=== PATIENT | female | born 1955 | race African-American/Black ===

== ENCOUNTER → 2022-11-23 10:15 | Outpatient (BNVA) | payer OTHER, MEDICAID, SELFPAY | PROVIDERS: PCP Hospitalist; Visit Provider Nurse Practitioner Family | DX: G47.33 Obstructive sleep apnea (adult) (pediatric) (principal); I69.392 Facial weakness following cerebral infarction; G43.009 Migraine without aura, not intractable, without status migrainosus; R40.0 Somnolence | CPT/HCPCS: 99202 ==

== ENCOUNTER → 2022-12-27 19:30 | Outpatient (REF) | payer OTHER, SELFPAY | LOC: HO.SL 19:30 | PROVIDERS: Visit Provider Nurse Practitioner Family | DX: G47.33 Obstructive sleep apnea (adult) (pediatric) (principal); R40.0 Somnolence | CPT/HCPCS: 95810 ==

== ENCOUNTER → 2022-12-27 22:24 | Outpatient (BNV) | payer OTHER, SELFPAY | PROVIDERS: Visit Provider Psychiatry & Neurology Neurology | DX: R06.83 Snoring (principal) | CPT/HCPCS: 95810 ==

== ENCOUNTER 2023-02-09 11:15 | Outpatient (AMB) | payer OTHER, MEDICAID, SELFPAY ==
--- NOTE | 2023-02-09 11:23 | MHC.OFFVIS ---
Intake Vital Signs 02/09/23 11:24 Height 5 ft 3 in Weight 183 lb 8 oz BMI 32.5 BP 138/76 Blood Pressure Location Rt brachial Pulse 68 Pulse Source Pulse Oximeter Pulse Oximetry (%) 97 Oxygen Delivery Method Room Air Intake Visit Reasons: 2m f/u NABIL / L sided [id number] Intake Note: Pt presents today for NABIL Fup Allergies ibuprofen Allergy (Severe, Verified 02/09/23 11:30) rash penicillin V Allergy (Severe, Verified 02/09/23 11:30) rash valsartan Allergy (Severe, Verified 02/09/23 11:30) Rash aspirin Allergy (Verified 02/09/23 11:30) rash HPI HPI Comments History of Present Illness Details 67 y/o female patient with hx of TIA, HTN, HLD and NABIL on CPAP presents for follow up of sleep study. The PSG sleep study result was significant for loud snoring. There was no evidence of sleep apnea or sleep related movement disorders. She had hx of NABIL and using CPAP. Pt was diagnosed with NABIL about 15-18 years and has been using the old CPAP. She has received new supplies from [facility] recently. However, she does not use the CPAP regularly and the new supplies does not fit to the old CPAP. Pt reports that she had episodes of difficulty breathing and gasping at night for the last two days. Pt states that her nose blocked, but not congested, she could not use CPAP. She could not sleep and woke up with headache. Pt disagree with the sleep study result, and wants to refer for second opinion. PFS Surgical History H/O tooth extraction History of ankle surgery History of thyroid surgery History of tonsillectomy Hx of breast reduction, elective Family History Father Cancer Mother Cancer HTN (hypertension) Family/Other Cancer HTN (hypertension) Social History Alcohol intake: never Patient Tobacco Use Status: Never used Tobacco Review of Systems ENT Reports Normal hearing present Neuro Reports Normal hearing present Physical Exam Vital Signs: Last Vital Signs Pulse 68 02/09/23 11:24 BP 138/76 02/09/23 11:24 Pulse Ox 97 08/31/23 11:24 Oxygen Delivery Method Room Air 02/09/23 11:24 BMI result Body Mass Index 32.5 Const General: cooperative Nutritional Appearance: obese Orientation/consciousness: patient oriented x3 Neck Neck: Yes full ROM and Yes supple Resp Effort & Inspection: normal respiratory effort and able to speak in complete sentences Neuro Other: Left upper extremity and lower extremity strength 4/5. 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 General: patient oriented x3, gait normal and moves all extremities Cranial nerves: Yes Bilaterally intact EOM present, Yes Normal facial strength present, Yes Midline tongue present, Yes Symmetric palate elevation present, Yes Normal hearing present, Yes Ability to bilaterally rotate head present and Yes Ability to bilaterally elevate shoulders present Cognition (Neuro): normal cognition Gait exam (Neuro): Normal gait present Motor exam (neuro): Pronator motor function not present and no tremor noted Deep tendon reflexes (DTR's): Right brachioradialis reflex intensity grade: 2+, Left brachioradialis reflex intensity grade: 3+, Right patellar reflex intensity grade: 1+ and Left patellar reflex intensity grade: 4+ Psych Appearance: grossly normal Mental Status: mental status grossly normal Speech and movement: Normal speech and movement present Affect: normal affect Attitude: cooperative Assessment & Plan Assessment & Plan (1) Snoring: Code(s): R06.83 - Snoring (2) NABIL on CPAP: Code(s): G47.33 - Obstructive sleep apnea (adult) (pediatric) (3) Daytime sleepiness: Code(s): R40.0 - Somnolence Plan Discussed regarding sleep study result and referring to ENT for snoring evaluation. However, patient declined to refer to ENT. Pt wants to have repeat sleep study and the second opinion. Advised patient to sleep on her side to decrease snoring. Refer patient to [facility]. Orders: Referrals Sleep Medicine Referral G47.33 - Obstructive sleep apnea (adult) (pediatric), R06.83 - Snoring, R40.0 - Somnolence Coding Level of Care Code Est Pt Level 3 (81973) Diagnoses Snoring R06.83 NABIL on CPAP G47.33 Daytime sleepiness R40.0
[2023-02-09 11:24] VITALS: BP 138/76; PULSE 68; O2SAT 97; BMI 32.5
== END 2023-02-09 11:54 | disposition home or self-care (01) ==
PROVIDERS: PCP Hospitalist; Visit Provider Nurse Practitioner Family
DX: R06.83 Snoring (principal); G47.33 Obstructive sleep apnea (adult) (pediatric); R40.0 Somnolence
CPT/HCPCS: 99213

== ENCOUNTER → 2023-02-09 11:15 | Outpatient (BNVA) | payer OTHER, SELFPAY | PROVIDERS: PCP Hospitalist; Visit Provider Nurse Practitioner Family | DX: G47.33 Obstructive sleep apnea (adult) (pediatric) (principal); R06.83 Snoring; R40.0 Somnolence | CPT/HCPCS: 99212 ==

== ENCOUNTER 2024-11-07 14:46 | Outpatient (AMB) | payer MEDICARE, MEDICAID, SELFPAY ==
--- OUTSIDE RECORDS SUMMARY | 2024-11-07 14:50 | XMS_ITS | Patient Health Record ---
Author Organization [facility] Address [address] [place] [address] Care Team Providers Care Batch Heat Treat Operator Name Role Phone ARNOLD ESCUDERO Primary Care Provider Niall Mensah Unavailable [phone] Allergies Allergen (clinical drug ingredient) Drug/Non Drug Allergy documented on EMR Reaction Allergy Type Onset Date Status hydrochlorothiazide hydroCHLOROthiazide low patassium Drug Allergy Inactive valsartan Valsartan rash Drug Allergy Active aspirin Aspirin Unknown Drug Allergy Active gabapentin Gabapentin Bilateral arm and leg weakness Drug Allergy Active ibuprofen Ibuprofen Unknown Drug Allergy Active Penicillin Unknown Drug Allergy Active Results Component Value Reference Range Notes PLASMA RENIN ACTIVITY Reviewed date:07/29/2024 07:45:34 AM Interpretation: Performing Lab: Notes/Report: Test(s) 219783-Fsscr Activity, Plasma was developed and its performance characteristics determined by [facility]. It has not been cleared or approved by the Food and Drug Administration. Performed at: 01 - [address] [id number] Cotton Picker Operator: Iron Bedoya MD, Phone: [phone] RENIN ACTIVITY, PLASMA <0.167 0.167-5.3 80 ng/mL/hr ALDOSTERONE, DIRECT RENIN RA RAQUEL Reviewed date:07/27/2024 08:59:48 AM Interpretation: Performing Lab: Notes/Report: Aldosterone 3.5 REFERENCE RANGE: Upright <= 39.2 ng/dL Supine <= 23.2 ng/dL Direct Renin <2.1 3.1-57.1 pg/mL Aldosterone/Direct Renin Ratio 1.7 0.1-3.7 Test performed at [facility], [address] , [place] [address] Carole Rosenbaum MD, PhD - Living Skills Advisor MR BRAIN WO CONTRAST Reviewed date:07/24/2024 12:08:24 PM Interpretation: Performing Lab: Notes/Report: Note See Note [facility], a member of [employer] Patient Name: TOVA CAPONE Date of : 1955 Reason for Exam: Stroke, follow up Exam Date: 07/24/[id number] EST Report Status: Final Ordering Provider: NATHEN OWUSU PCP: ARNOLD ESCUDERO PROCEDURE: Brain MRI INDICATION: Stroke, left-sided weakness TECHNIQUE: Multiplan ar, multisequence MRI of the brain Without contrast. COMPARISON: Head CT and CTA 07/23/2024. Brain MRI 02/26/2023 FINDINGS: No acute infarct, ma ss effect, or intracranial hemorrhage. Right cerebellar developmental venous anomaly better visualized on comparison CTA. Brain parenchyma is otherwise normal in signal. No abnormal intracranial susceptibility artifact. Sella and foramen magnum are normal. Ventricles, sulci, a nd cisterns are normal in size and configuration. No hydrocephalus. Major intracranial arterial flow voids are normal. Intracranial arterial vasculature is better assessed on recent CTA. Small right mastoid effusion. Sinuses and left mastoid air cells are clear. Orbits and extracran ial soft tissues are normal. Calvarium is normal. IMPRESSION: Normal brain MRI without contrast. No acute infarct. -------- FINAL REPOR T -------- Dictated By: EUGENIA SONI Dictated Date: 07/24/2024 09:41 ET Assigned Physician: EUGENIA SONI Reviewed and Electronically Signed By: EUGENIA SONI Signed Date: 025 09:44 ET Workstation ID: [id number] Transcribed By: Self Edit Transcribed Date: 07/24/2024 09:41 ET CORTISOL Reviewed date:07/24/2024 12:08:27 PM Interpretation: Performing Lab: Notes/Report: CORTISOL REFERENCE RANGE 8 AM SPEC: 5.0-23.0 mcg/dL 4 PM SPEC: 3.0-16.0 mcg/dL 8 PM SPEC: <5.0 mcg/dL Cortisol 9.9 Basic Metabolic Panel (8)-[id number] Reviewed date:09/12/2024 08:52:31 AM Interpretation: Performing Lab:[facility], [address] [place] [address], Phone - [phone], [facility] Notes/Report: Glucose 122 70-99 mg/dL BUN 16 8-27 mg/dL Creatinine 0.84 0.57-1.00 mg/dL eGFR 75 >59 mL/min/1.73 BUN/Creatinine Ratio 19 12-28 Sodium 144 134-144 mmol/L Potassium 2.9 3.5-5.2 mmol/L Chloride 104 96-106 mmol/L Carbon Dioxide, Total 19 20-29 mmol/L Calcium 10.0 8.7-10.3 mg/dL Ferritin-[id number] Reviewed date:09/12/2024 08:52:42 AM Interpretation: Performing Lab:[facility], [address] [place] [address], Phone - [phone], Director - [facility] Notes/Report: Ferritin 39 15-150 ng/mL Magnesium-[id number] Reviewed date:09/12/2024 08:52:57 AM Interpretation: Performing Lab:[address], Phone - [phone], Director - [facility] Notes/Report: Magnesium 2.0 1.6-2.3 mg/dL Iron and TIBC-[id number] Reviewed date:09/12/2024 08:52:49 AM Interpretation: Performing Lab:[facility], [address] [place] [address], Phone - [phone], Director [facility] Notes/Report: Iron Bind.Cap.(TIBC) 337 250-450 ug/dL UIBC 271 118-369 ug/dL Iron 66 27-139 ug/dL Iron Saturation 20 15-55 % MAGNESIUM Reviewed date:07/24/2024 07:52:25 AM Interpretation: Performing Lab: Notes/Report: Magnesium 1.6 1.9-2.6 mg/dL POTASSIUM Reviewed date:07/24/2024 05:03:21 PM Interpretation: Performing Lab: Notes/Report: Potassium 4.5 3.5-5.5 mmol/L LIPID PANEL WITH REFLEX TO D IRECT LDL Reviewed date:07/24/2024 07:52:20 AM Interpretation: Performing Lab: Notes/Report: Cholesterol 194 0-200 mg/dL Triglycerides 125 0-150 mg/dL HDL 49 >=40 mg/dL LDL Calculated 120 0-100 mg/dL VLDL Cholesterol Yordan 25 Non HDL Chol. (LDL+VLDL) 145 <145 mg/dL Chol/HDL Ratio 4.0 0.0-4.4 BASIC METABOLIC PANEL Reviewed date:07/30/2024 11:07:18 AM Interpretation: Performing Lab: Notes/Report: Sodium 143 133-145 mmol/L Potassium 2.9 3.5-5.5 mmol/L Chloride 109 96-110 mmol/L CO2 29 21-32 mmol/L Anion Gap 5 3-11 Glucose 101 70-100 mg/dL BUN 10 5-25 mg/dL Creatinine 0.72 0.50-1.10 mg/dL eGFR 91 >=60 mL/min/1.73m2 Calculation based on the Chronic Kidney Disease Epidemiology Collaboration (CKD-EPI) equation refit without adjustment for race. BUN/Creatinine Ratio 13.9 Calcium 8.6 8.5-10.5 mg/dL XR CHEST 1 VIEW Reviewed date:07/24/2024 12:08:56 PM Interpretation: Performing Lab: Notes/Report: Note See Note [facility], a member of [employer] Patient Name: TOVA CAPONE Date of : 1955 Reason for Exam: Neuro deficit, acute, stroke suspected Exam Date: 07/23/2024 [id number] EST Report Status: Final Ordering Provider: DAVID DA SILVA PCP: ARNOLD ESCUDERO HISTORY: The patient is a 69-year-old female with altered mental status and neurologic deficit. FINDINGS: AP portabl e radiograph of the chest demonstrates normal appearance of the bony structures. The cardiac silhouette is borderline enlarged as also seen on the prior examination performed 01/20/2024. The aortic knob is calcified and the descending thoracic aorta is tortuous. Mild linear scarring is again seen laterally near the left lung base. There is a 7.8 mm diameter oval nodular density laterally near the right lung base of uncertain etiology. The lungs are otherwise clear. IMPRESSION: 1. There is a 7.8 mm diameter masslike density laterally near the right lung base. This may represent a pulmonary nodule and neoplasm cannot be excluded. Further evaluation with CT scan of the chest is recommended. 2. Linear scarring a t the left lung base is unchanged since 01/20/2024. 3. Borderline cardiomegaly, stable since the prior study. Code 68071 -------- FINAL REPOR T -------- Dictated By: Gene Diallo Dictated Date: 07/24/2024 10:03 ET Assigned Physician: Gene Diallo Reviewed and Electronically Signed By: Gene Diallo Signed Date: 025 10:08 ET Workstation ID: [id number] Transcribed By: Self Edit Transcribed Date: 07/24/2024 10:07 ET HEMOGLOBIN A1C Reviewed date:07/24/2024 05:03:30 PM Interpretation: Performing Lab: Notes/Report: Hemoglobin A1C 5.9 <6.5 % Mean Bld Glu Estim. 123 LIPID PANEL WITH REFLEX TO D IRECT LDL Reviewed date:07/24/2024 07:51:44 AM Interpretation: Performing Lab: Notes/Report: Cholesterol 206 0-200 mg/dL Triglycerides 215 0-150 mg/dL HDL 51 >=40 mg/dL LDL Calculated 112 0-100 mg/dL VLDL Cholesterol Yordan 43 Non HDL Chol. (LDL+VLDL) 155 <145 mg/dL Chol/HDL Ratio 4.0 0.0-4.4 Basic Metabolic Panel (7)-30 [id number] Reviewed date:08/02/2024 12:31:03 AM Interpretation: Performing Lab:[facility], [address] [facility], Phone - [phone], Director - [facility] Notes/Report: Glucose 125 70-99 mg/dL BUN 9 8-27 mg/dL Creatinine 0.77 0.57-1.00 mg/dL eGFR 83 >59 mL/min/1.73 BUN/Creatinine Ratio 12 12-28 Sodium 144 134-144 mmol/L Potassium 3.8 3.5-5.2 mmol/L Chloride 108 96-106 mmol/L Carbon Dioxide, Total 20 20-29 mmol/L CBC With Differential/Platel et-[id number] Reviewed date:09/12/2024 08:53:11 AM Interpretation: Performing Lab:[facility], [address] [facility], [place], Phone - [phone], Director - MDJodry Notes/Report: WBC 11.2 3.4-10.8 x10E3/uL RBC 4.66 3.77-5.28 x10E6/uL Hemoglobin 14.2 11.1-15.9 g/dL Hematocrit 41.3 34.0-46.6 % MCV 89 79-97 fL MCH 30.5 26.6-33.0 pg MCHC 34.4 31.5-35.7 g/dL RDW 15.4 11.7-15.4 % Platelets 346 150-450 x10E3/uL Neutrophils 57 Not Estab. % Lymphs 33 Not Estab. % Monocytes 9 Not Estab. % Eos 0 Not Estab. % Basos 0 Not Estab. % Neutrophils (Absolute) 6.4 1.4-7.0 x10E3/uL Lymphs (Absolute) 3.7 0.7-3.1 x10E3/uL Monocytes(Absolute) 1.0 0.1-0.9 x10E3/uL Eos (Absolute) 0.0 0.0-0.4 x10E3/uL Baso (Absolute) 0.0 0.0-0.2 x10E3/uL Immature Granulocytes 1 Not Estab. % Immature Grans (Abs) 0.1 0.0-0.1 x10E3/uL CBC WITH AUTO DIFF Reviewed date:01/20/2024 11:02:20 AM Interpretation: Performing Lab: Notes/Report: Original Ordering Provider: RIGOBERTO [facility], a member of [address] [address] Living Skills Advisor - Kerry Mccormick MD WBC 13.6 4.8-10.8 x10-3/uL RBC 5.0 3.8-4.8 x10-6/uL HEMOGLOBIN 14.3 11.5-16.0 g/dL HEMATOCRIT 44.3 35-47 % MCV 87.9 79-98 fL MCH 28.4 27-32 pg MCHC 32.3 32-37 g/dL RDW 14.3 11-15 % PLT COUNT 366 130-400 x10-3/uL MEAN PLATELET VOLUME 9.6 7-11 fL NRBC % AUTO 0.0 <1 % NEUT % 85.1 LYMPH % 9.4 MONO % 3.6 EOS % 0.7 BASO % 0.4 IMMATURE GRANULOCYTES % 0.8 NRBC # AUTO 0.00 <0.1 x10-3/uL ABSOLUTE NEUT 11.55 1.5-7.0 x10-3/uL LYMPH # 1.27 1-5.0 x10-3/uL MONO # 0.49 0.2-1.0 x10-3/uL EOS # 0.09 0-0.5 x10-3/uL BASO # 0.05 0-0.2 x10-3/uL IMMATURE GRANULOCYTES # 0.11 0-0.03 x10-3/uL PARTIAL THROMBOPLASTIN TIME Reviewed date:12/01/2023 11:26:42 AM Interpretation: Performing Lab: Notes/Report: Hingi, a member of [address] [address] Living Skills Advisor - Kerry Mccormick MD PARTIAL THROMBOPLASTIN TIME 38.1 24.1-39.3 sec PT/INR Reviewed date:12/01/2023 11:26:52 AM Interpretation: Performing Lab: Notes/Report: Original Ordering Provider: RIGOBERTO ER PROTHROMBIN TIME 13.4 10.6-13.9 SEC INR 1.07 CBC WITH AUTO DIFF Reviewed date:12/01/2023 11:27:02 AM Interpretation: Performing Lab: Notes/Report: Original Ordering Provider: RIGOBERTO CARTER Hingi, a member of [address] [address] Living Skills Advisor - Kerry Mccormick MD WBC 6.5 4.8-10.8 x10-3/uL RBC 4.6 3.8-4.8 x10-6/uL HEMOGLOBIN 13.6 11.5-16.0 g/dL HEMATOCRIT 40.4 35-47 % MCV 88.0 79-98 fL MCH 29.6 27-32 pg MCHC 33.7 32-37 g/dL RDW 13.2 11-15 % PLT COUNT 321 130-400 x10-3/uL MEAN PLATELET VOLUME 9.7 7-11 fL NRBC % AUTO 0.0 <1 % NEUT % 56.3 LYMPH % 29.4 MONO % 8.4 EOS % 4.6 BASO % 0.8 IMMATURE GRANULOCYTES % 0.5 NRBC # AUTO 0.00 <0.1 x10-3/uL ABSOLUTE NEUT 3.67 1.5-7.0 x10-3/uL LYMPH # 1.92 1-5.0 x10-3/uL MONO # 0.55 0.2-1.0 x10-3/uL EOS # 0.30 0-0.5 x10-3/uL BASO # 0.05 0-0.2 x10-3/uL IMMATURE GRANULOCYTES # 0.03 0-0.03 x10-3/uL Reason For Referral Reason Evaluation and manag ement Diagnosis 1 Unspecified sensorin eural hearing loss (H90.5) Referral Organization [facility] Referring Provider First Name Niall Referring Provider Last Name Rodrick Referred Provider Specialty Ear, nose an d throat surgeon General Notes Referral sent to [facility] - Office will call patient for scheduling.Ajay Latraya 02/28/2024 04:16:20 PM > Referral Priority Routine Reason Evaluation and manag ement - Migraine DE LEON and brain aneurysm Diagnosis 1 Migraine with aura, not intractable, without status migrainosus (G43.109) Referral Organization [facility] Referring Provider First Name Jennie Referring Provider Last Name Rodrick Referred Provider Specialty Neurology General Notes Referral sent to [facility] - Office will call patient for scheduling.Ajay Latraya 02/28/2024 04:17:16 PM > Referral Priority Routine Reason Evaluation and manag ement Diagnosis 1 Encounter for screen ing for malignant neoplasm of skin (Z12.83) Referral Organization [facility] Referring Provider First Name Jennie Referring Provider Last Name Rodrick Referred Provider Specialty Dermatology General Notes Referral sent to [facility] in [place]- Office will call patient for scheduling.Ajay Latraya 02/28/2024 04:18:43 PM > Referral Priority Routine Reason Please evaluate and treat call Ursula Capone Ph: HCP to schedule appt Diagnosis 1 Transient cerebral i schemic attack, unspecified (G45.9) Referral Organization [facility] Referring Provider First Name Jennie Referring Provider Last Name Rodrcik Referred Provider Specialty Neurology General Notes Referral faxed to [facility] Please call patient to schedule.Tarun Christy 08/02/2024 10:46:01 AM > Referral Priority Stat Reason Numbness involving t he left fifth digit of the foot please evaluate and treat Diagnosis 1 Paresthesia of skin (R20.2) Referral Organization [facility] Referring Provider First Name Jennie Referring Provider Last Name Rodrick Referred Provider Specialty Podiatry General Notes Referral was faxed t o [facility]. Please contact patient for scheduling., Tati Quinones 08/16/2024 05:00:50 PM > Referral Priority Routine Reason Evaluation and manag ement please evaluate and treat, r/o secondary causes of hypokalemia, previous Bloodwork showed low direct renin and low renin activity plasma. She does also have hx of HTNN Diagnosis 1 Hypokalemia (E87.6) Diagnosis 2 Essential (primary) hypertension (I10) Referral Organization [facility] Referring Provider First Name ARNOLD Referring Provider Last Name KENA Referring Provider Speciality Internal M edicine Referred Provider Specialty Nephrology General Notes Referral sent to [facility] ([facility], [address] [place] [address], ). Please let patient know. Thanks!, Emile Romero 10/24/2024 01:05:39 PM > Referral Priority Urgent Reason cyst on the left fernando calixto Dr. Please evaluate and treat Diagnosis 1 Epidermal cyst (L72. 0) Referral Organization [facility] Referring Provider First Name Niall Referring Provider Last Name Rodrick Referred Provider Specialty General Surg brianne General Notes Please call the vin ent to schedule the appointment, [facility]. Please contact them at [phone], Elisa Carballo 11/05/2024 04:37:08 PM > Referral Priority Routine Medications Medication SIG (Take, Route, Frequency, Duration) Notes Start Date End Date Status Ondansetron HCl 4 MG TAKE 1 TABLET BY MO UTH EVERY DAY for 30 Active Albuterol Sulfate HFA 108 (90 Base) MCG/ACT INHALE 1 PUFF INTO THE LUNGS as NEEDED FOR 90 DAYS for 25 days Active amLODIPine Besylate 10 MG 1 tablet Orall y Once a day for 90 days Active Pantoprazole Sodium 40 MG 1 tablet Orall y Once a day for 30 days Active Blood Pressure Kit - take blood pressure once a day for 365 days 02/15/2024 Active Topiramate 25 MG TAKE 1 TABLET BY ISHA TH AT BEDTIME FOR HEADACHE PREVENTION once a day for 90 days Active traZODone HCl 50 MG 1 tablet Orally Once at night for 90 days 02/28/2024 Active Estradiol 0.1 MG/24HR 1 patch to skin Transdermal Two times a Week Not-Taking Atorvastatin Calcium 80 MG TAKE 1 TABLET BY MOUTH EVERY DAY FOR 90 DAYS Orally Once a day for 90 days Active Vitamin C 500 MG as directed Orally Not-Taking Ubrelvy 50 MG 1 tablet as needed, may take second dose at least 2 hours after first dose up to 4 tablets per day as needed Orally Once a day for 30 days 08/08/2024 Active Meclizine HCl 12.5 MG 1 tablet as needed Orally every 8 hrs 03/01/2023 Not-Taking Wall Grab Bar - Grab shower bar for 90 days 04/10/2024 Active Losartan Potassium 50 MG TAKE 1 TABLET B Y MOUTH TWICE A DAY for 90 Not-Taking Losartan Potassium 100 MG 1 tablet Orall y Once a day for 90 days Active Klor-Con M20 20 MEQ TAKE 1 TABLET BY ISHA TH EVERY DAY WITH FOOD for 90 Active Coreg 3.125 MG 1 tablet with food Orally Twice a day for 30 days Active predniSONE 20 MG 3 tablets once a day for 5 days, 2 tablets once a day for 5 days, 1 tablet once a day for 5 days Orally for 15 days 09/05/2024 Not-Taking Azithromycin 250 MG as directed Orally 2 tablets on the first day, then 1 tablet daily for 5 days 09/05/2024 Not-Taking Blood Pressure Kit - as directed for 30 days 08/15 Active Aspirin Adult Low Dose 81 MG 1 tablet Orally Once a day Not-Taking Immunizations Vaccine Route Administration Date Status Comme nts COVID Unknown 08/15/2020 Administered 1st Pfizer COVID Unknown 09/26/2020 Administered 2nd pfizer Influenza, high dose seasonal Unknown 03/05/2021 Admini stered Pneumococcal polysaccharide PPV23 Unknown 10/20/2014 Ad ministered Tdap Unknown 06/15/2012 Administered Social History Tobacco Use: Social History Observation Description Date Details (start date - stop date) Former Smoker NA - NA Tobacco Use/Smoking Question Answer Notes Are you a former smoker How long has it been since you last smoked? > 10 years Alcohol Screen (Audit-C) Question Answer Notes Did you have a drink containing alcohol in the p ast year? 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) Active confirmed Problem Transient ischemic attack (520820323) Transient cerebral ischemic attack, unspecified (G45.9) Active confirmed Problem Insomnia (715043834) Insomnia, unspecified (G47.00) Active confirmed Problem Obstructive sleep apnea syndrome (disorder) (13360340) Obstructive sleep apnea (adult) (pediatric) (G47.33) Active confirmed Problem Hemiplegia of nondominant side (080668629) Hemiplegia, unspecified affecting left nondominant side (G81.94) Active confirmed Problem Sensorineural hearing loss (67238737) Unspecified sensorineural hearing loss (H90.5) Active confirmed Problem Essential hypertension (10438209) Essential (primary) hypertension (I10) Active confirmed Problem Infarction - precerebral (777410458) Cerebral infarction due to thrombosis of unspecified precerebral artery (I63.00) Active confirmed Problem Carotid artery occlusion (825474621) Occlusion and stenosis of unspecified carotid artery (I65.29) Active confirmed Problem Seasonal allergic rhinitis (281412362) Other seasonal allergic rhinitis (J30.2) Active confirmed Problem Mild intermittent asthma (151113608) Mild intermittent asthma, uncomplicated (J45.20) Active confirmed Problem Gastro-esophageal reflux disease without esophagitis (848872795) Gastro-esophageal reflux disease without esophagitis (K21.9) Active confirmed Problem Sciatica (93226413) Lumbago with sciatica, unspecified side (M54.40) Active confirmed Problem Age-related osteoporosis (691842034) Age-related osteoporosis without current pathological fracture (M81.0) Active confirmed Problem Disorder of breast (10508713) Other specified disorders of breast (N64.89) Active confirmed Problem Postmenopausal atrophic vaginitis (88972357) Postmenopausal atrophic vaginitis (N95.2) Active confirmed Problem Cystic disease of liver (36914669) Cystic disease of liver (Q44.6) Active confirmed Problem Paresthesia (finding) (61141753) Paresthesia of skin (R20.2) Active confirmed Problem Obstructive sleep apnea (27373093) Obstructive sleep apnea (G47.33) Active confirmed Vital Signs Heart Rate 67 /min 11/01/2024 Temperature 96.8 degrees Fahrenheit 11/01/2024 Oximetry 100 % 11/01/2024 Blood pressure diastolic 70 mm Hg 11/01/2024 Height 63.25 in 11/01/2024 Blood pressure systolic 120 mm Hg 11/01/2024 Weight 171.3 lbs 11/01/2024 BMI 30.1 kg/m2 11/01/2024 Encounters Encounter Location Date Provider Diagnosis [address] [place] [address] 11/28/[address] [place] [address] 12/20/[address] [place] [address] 02/15/[address] [place] [address] 02/19/[address] [place] [address] 04/10/[address] [place] [address] 05/01/[address] [place] [address] 05/02/[address] [place] [address] 05/28/2024 [facility] Insomnia, unspecifie d G47.[address] [place] [address] 07/04/[address] [place] [address] 07/12/2024 [facility] [address] [facility] [address] [place] [address] 07/29/2024 [facility] [address] [facility] [address] [place] [address] 08/01/2024 [facility] [address] [facility] [address] [place] [address] 08/02/2024 [facility] [address] [facility] [address] [place] [address] 08/02/2024 [facility] [address] [facility] [address] [place] [address] 08/06/2024 [facility] [address] [facility] [address] [place] [address] 08/06/2024 [facility] [address] [facility] [address] [place] [address] 08/08/2024 [facility] [address] [facility] [address] [place] [address] 08/15/2024 [facility] [address] [facility] [address] [place] [address] 08/15/2024 [facility] [address] [facility] [address] [place] [address] 08/16/2024 [facility] [address] [facility] [address] [place] [address] 08/19/2024 [facility] [address] [facility] [address] [place] [address] 08/21/2024 [facility] [address] [facility] [address] [place] [address] 08/23/2024 Jennieer Rupertoloum Other specified diso rders of breast N64.89 and Cystic disease of liver Q44.6 [facility] [address] [facility] [address] [place] [address] 08/28/2024 BARRETT GUL Mammographic microcalcification found on diagnostic imaging of breast R92.0 [facility] [address] [facility] [address] [place] [address] 09/03/2024 [facility] [address] [facility] [address] [place] [address] 09/05/2024 [facility] [address] [facility] [address] [place] [address] 09/06/2024 BARRETT GUL Essential (primary) hypertension I10 [facility] [address] [facility] [address] [place] [address] 09/06/2024 BARRETT GUL Essential (primary) hypertension I10 [facility] [address] [facility] [address] [place] [address] 09/12/2024 Niall Mensah [facility] [address] [facility] [address] [place] [address] 09/16/2024 [facility] [address] [facility] [address] [place] [address] 09/18/2024 [facility] [address] [facility] [address] [place] [address] 09/25/2024 BARRETT GUL Essential (primary) hypertension I10 [facility] [address] [facility] [address] [place] [address] 10/03/2024 BARRETT GUL Migraine with aura, not intractable, without status migrainosus G43.109 [facility] [address] [facility] [address] [place] [address] 10/24/2024 Niall Mensah Hypokalemia E87.6 [facility] [address] [facility] [address] [place] [address] 10/24/2024 [facility] [address] [facility] [address] [place] [address] 10/25/2024 BAR[address]TT [address] [place] [address] 02/28/2024 Ghkimberlyer Rupertoloum Annual visit for [facility] adult medical examination without abnormal findings Z00.00 ; Essential (primary) hypertension I10 ; Migraine with aura, not intractable, without status migrainosus G43.109 ; Insomnia, unspecified G47.00 and Hyperlipidemia, unspecified E78.[address] [place] [address] 08/01/2024 Ghadeer Mazloum Essential (primary) hypertension I10 ; Transient cerebral ischemic attack, unspecified G45.9 and Paresthesia of skin R20.[address] [place] [address] 08/15/2024 Ghadeer Mazloum Essential (primary) hypertension I10 ; Cardiac murmur, unspecified R01.1 ; Insomnia, unspecified G47.00 and Paresthesia of skin R20.[address] [place] [address] 10/04/2024 [facility] [address] [place] [address] 11/01/2024 Ghadeer Mazloum Essential (primary) hypertension I10 ; Hypokalemia E87.6 ; Epidermal cyst L72.0 ; Insomnia, unspecified G47.00 ; Occlusion and stenosis of unspecified carotid artery I65.29 ; Pulmonary nodule, right R91.1 ; Transient cerebral ischemic attack, unspecified G45.9 and Migraine with aura, not intractable, without status migrainosus G43.109 [address] [place] [address] 07/25/2024 Ghadeer Mazloum Essential (primary) hypertension I10 ; Mixed hyperlipidemia E78.2 ; Obstructive sleep apnea G47.33 ; Migraine with aura, not intractable, without status migrainosus G43.109 ; Pulmonary nodule R91.1 ; Occlusion and stenosis of unspecified carotid artery I65.29 and Transient cerebral ischemic attack, unspecified G45.[address] [place] [address] 09/05/2024 Ghadeer Mazloum Leg cramps R25.2 and Cough R05.9 [facility] [address] [facility] [address] [place] [address] 08/08/2024 Ghadeer Mazloum Essential (primary) hypertension I10 and Migraine with aura, not intractable, without status migrainosus G43.109 Assessments Encounter Date Diagnosis (ICD Code) Assessment Notes Treatment Notes Treatment Clinical Notes Section Notes 02/28/2024 Essential (primary) hypertension (ICD-10 - I10) Mrs. Capone is a 68-year-old lady with GERD, hypertension, hyperlipidemia, GI bleed and follows up with Juan Hua at GI, postmenopausal atrophic vaginitis, asthma/seasonal allergies, migraine headaches and TIA here for for physical examination. Plan as follows: HTN: - BP is well controlled. Continue on the same regimen. - EKG is performed today HR of 68, Sinus Rhythm. No ST elevation/depress ion or BBB. Migrain with aura: Brain Aneurysm - She is currently on Topamax. Recommended using magnesium or Riboflavin for headache. Given her history of UGIB and TIA. There is a limited option for other medications to consider. Referred to Neurology as well for possible botox injections. Insomnia: - Advisde on establishing good sleep habits. Can use Melatonin. Started patient on Trazadone low dose. HLD: - Previous lipid panel is abnormal. Check lipid panel She is UTD on vaccination and screening Referred to Dermatology [facility]: Has an upcoming appt Dentist twice a year Hearing referred to ENT HCP Ursula Capone Ph: . Full Code I have rendered the services for this patient under direct supervision of Dr. Escudero, who did not see the patient but was available upon request 02/28/2024 Annual visit for general adult medical examination without abnormal findings (ICD-10 - Z00.00) Mrs. Capone is a 68-year-old lady with GERD, hypertension, hyperlipidemia, GI bleed and follows up with Juan Hua at GI, postmenopausal atrophic vaginitis, asthma/seasonal allergies, migraine headaches and TIA here for for physical examination. Plan as follows: HTN: - BP is well controlled. Continue on the same regimen. - EKG is performed today HR of 68, Sinus Rhythm. No ST elevation/depress ion or BBB. Migrain with aura: Brain Aneurysm - She is currently on Topamax. Recommended using magnesium or Riboflavin for headache. Given her history of UGIB and TIA. There is a limited option for other medications to consider. Referred to Neurology as well for possible botox injections. Insomnia: - Advisde on establishing good sleep habits. Can use Melatonin. Started patient on Trazadone low dose. HLD: - Previous lipid panel is abnormal. Check lipid panel She is UTD on vaccination and screening Referred to Dermatology [facility]: Has an upcoming appt Dentist twice a year Hearing referred to ENT HCP Ursula Capone Ph: [phone]. Full Code I have rendered the services for this patient under direct supervision of Dr. Escudero, who did not see the patient but was available upon request 05/28/2024 Insomnia, unspecifie d (ICD-10 - G47.00) 07/25/2024 Mixed hyperlipidemia (ICD-10 - E78.2) Mrs. Capone is a 69-year-old lady with GERD, hypertension, hyperlipidemia, GI bleed and follows up with Juan Sequeira at GI, postmenopausal atrophic vaginitis, asthma/seasonal allergies, migraine headaches and TIA here for 4 Hospital follow-up.Plan as follows: HTN: - Blood pressure is elevated in the office today. She is still taking Chlorthalidone along with amlodipine 10mg and losartan 50mg. I have discontinued Chlorthalidone and increased losartan to 100mg. Continue on potassium chloride until we check bmp for electrolyte imbalance and kidney function. HLD: - She is currently on Atorvastatin 80mg. Check lipid panel NABIL: - Compliance highly recommended with CPAP. Complications discussed. Migraine with atypical features - Currently follows with Neurology TIA Cerebral aneurysm: - There has been a question on 2mm anterior communicating artery aneurysm. Mild atherosclerotic buildup in the carotid Repeat CTA in the hospital showed no mention of aneurysm, however patient has a follow-up with neurosurgeon on further evaluation. As for now, we will optimize management. LDL goal below 70, a1c below 7. BP 130/80. She is not on ASA/Plavix due to history of GI bleed. Patient is to follow with neurology on further discussion and alternative Ordered Carotid U/S to assess degree of atherosclerotic build-up. Pulmonary nodule: - Former smoker. Incidental finding on CXR with nodule of 7.8. Semi-solid mass. Ordered CT to further assess. I have rendered the services for this patient under direct supervision of Dr. Escudero, who did not see the patient but was available upon request 07/25/2024 Essential (primary) hypertension (ICD-10 - I10) Mrs. Capone is a 69-year-old lady with GERD, hypertension, hyperlipidemia, GI bleed and follows up with Juan Hua at GI, postmenopausal atrophic vaginitis, asthma/seasonal allergies, migraine headaches and TIA here for 4 Hospital follow-up.Plan as follows: HTN: - Blood pressure is elevated in the office today. She is still taking Chlorthalidone along with amlodipine 10mg and losartan 50mg. I have discontinued Chlorthalidone and increased losartan to 100mg. Continue on potassium chloride until we check bmp for electrolyte imbalance and kidney function. HLD: - She is currently on Atorvastatin 80mg. Check lipid panel NABIL: - Compliance highly recommended with CPAP. Complications discussed. Migraine with atypical features - Currently follows with Neurology TIA Cerebral aneurysm: - There has been a question on 2mm anterior communicating artery aneurysm. Mild atherosclerotic buildup in the carotid Repeat CTA in the hospital showed no mention of aneurysm, however patient has a follow-up with neurosurgeon on further evaluation. As for now, we will optimize management. LDL goal below 70, a1c below 7. BP 130/80. She is not on ASA/Plavix due to history of GI bleed. Patient is to follow with neurology on further discussion and alternative Ordered Carotid U/S to assess degree of atherosclerotic build-up. Pulmonary nodule: - Former smoker. Incidental finding on CXR with nodule of 7.8. Semi-solid mass. Ordered CT to further assess. I have rendered the services for this patient under direct supervision of Dr. Escudero, who did not see the patient but was available upon request 08/01/2024 Transient cerebral ischemic attack, unspecified (ICD-10 - G45.9) Mrs. Capone is a 69-year-old lady with GERD, hypertension, hyperlipidemia, GI bleed and follows up with Juan Hua at GI, postmenopausal atrophic vaginitis, asthma/seasonal allergies, migraine headaches and TIA here for BP follow-up. Plan as follows: HTN: - Blood pressure is within acceptable range. Continue on losartan to 100mg and amlodipine 10mg. Recent comp is non-concerning. Non-fasting BW. Potassium is within normal limit. Discontinue potassium chloride. Advised on increasing hydration, weight loss and excercising. TIA - Referred patient to Neurology for further discussion. Paresthesia of the skin: - Patient was prescribed gabapentin at the hospital. Refilled med. General concerns have been discussed I have rendered the services for this patient under direct supervision of Dr. Escudero, who did not see the patient but was available upon request 08/01/2024 Essential (primary) hypertension (ICD-10 - I10) Mrs. Capone is a 69-year-old lady with GERD, hypertension, hyperlipidemia, GI bleed and follows up with Juan Hua at , postmenopausal atrophic vaginitis, asthma/seasonal allergies, migraine headaches and TIA here for BP follow-up. Plan as follows: HTN: - Blood pressure is within acceptable range. Continue on losartan to 100mg and amlodipine 10mg. Recent comp is non-concerning. Non-fasting BW. Potassium is within normal limit. Discontinue potassium chloride. Advised on increasing hydration, weight loss and excercising. TIA - Referred patient to Neurology for further discussion. Paresthesia of the skin: - Patient was prescribed gabapentin at the hospital. Refilled med. General concerns have been discussed I have rendered the services for this patient under direct supervision of Dr. Escudero, who did not see the patient but was available upon request 08/28/2024 Mammographic microcalcification found on diagnostic imaging of breast (ICD-10 - R92.0) 09/05/2024 Cough (ICD-10 - R05.9) Mrs. Capone is a 69-year-old lady with GERD, hypertension, hyperlipidemia, GI bleed and follows up with Juan Hua at , postmenopausal atrophic vaginitis, asthma/seasonal allergies, migraine headaches and TIA here for chest congestion. Plan as follows Cough - She states that has been ongoing for the past 2 weeks and that she has been doing Oxygen treatment at a humidifier with minimal improvement. She admits to increased cough, or sputum production and shortness of breath. Physical examination is remarkable for mild crackles auscultated on the left lower lobe. Oxygen rate is within normal limits vital signs are no concerning. I will start patient on Z-Jason and prednisone with taper and continue using the inhalers. Leg cramps - I will rule out secondary causes anemia and electrolyte imbalance. I have rendered the services for this patient under direct supervision of Dr. Escudero, who did not see the patient but was available upon request 09/05/2024 Leg cramps (ICD-10 - R25.2) Mrs. Capone is a 69-year-old lady with GERD, hypertension, hyperlipidemia, GI bleed and follows up with Juan Sequeira at , postmenopausal atrophic vaginitis, asthma/seasonal allergies, migraine headaches and TIA here for chest congestion. Plan as follows Cough - She states that has been ongoing for the past 2 weeks and that she has been doing Oxygen treatment at a humidifier with minimal improvement. She admits to increased cough, or sputum production and shortness of breath. Physical examination is remarkable for mild crackles auscultated on the left lower lobe. Oxygen rate is within normal limits vital signs are no concerning. I will start patient on Z-Jason and prednisone with taper and continue using the inhalers. Leg cramps - I will rule out secondary causes anemia and electrolyte imbalance. I have rendered the services for this patient under direct supervision of Dr. Escudero, who did not see the patient but was available upon request 09/06/2024 Essential (primary) hypertension (ICD-10 - I10) 09/06/2024 Essential (primary) hypertension (ICD-10 - I10) 09/25/2024 Essential (primary) hypertension (ICD-10 - I10) 10/03/2024 Migraine with aura, not intractable, without status migrainosus (ICD-10 - G43.109) 10/24/2024 Hypokalemia (ICD-10 - E87.6) 11/01/2024 Hypokalemia (ICD-10 - E87.6) Mrs. Capone is a 69-year-old lady with GERD, hypertension, hyperlipidemia, GI bleed and follows up with Juan Cejas at , postmenopausal atrophic vaginitis, asthma/seasonal allergies, migraine headaches and TIA here for Recent ER follow-up. She was seen in the hospital for symptoms of bilateral arm and right leg weakness with headache and difficulty with speech. CT and CTA did not show acute evidence of intracranial pathology, it was thought to be related to gabapentin and thus medication has been discontinued. Plan as follows Hypertension. Blood pressure is well controlled. Continue same regimen Hypokalemia. She is currently on 20 mEq 3 times a week. She is not on medications that are known to cause hypokalemia. It is noted that workup was done at the hospital which he did show low Renin activity, we have deferred patient prior to this appointment to computing consultant for further workup on secondary causes of hyperkalemia. She does have an appointment coming up in 1 week. As for now we will recheck again uncombed, continue on potassium supplement 3 times a week. Epidermal cyst. She was seen at [facility] surgery and it was resected and now it occurred again, will refer patient to the department again Insomnia. Stable at this point. Continue same regimen Occlusion and stenosis of the carotid artery. We have done an ultrasound of the carotid back in August 2024 which did show less than 50% of stenosis bilaterally. We will optimize management by controlling blood pressure and high cholesterol, we will repeat ultrasound in one year. Pulmonary nodule. At that she will again on the CAT scan, grossly unchanged compared to before. We have also done a CAT scan and it was determined as benign. She is a low risk for malignancy as she is a non-smoker. We will keep him under surveillance, repeat CAT scan in 12 months NABIL. Continue on CPAP TIA. At this point she cannot be on antiplatelets as she did develop a GI bleed before. She is awaiting an appointment from neurologist. Migraine. Stable at this point Recent hospital visit has been reviewed with the patient. Questions have been answered. General concerns have been discussed I have rendered the services for this patient under direct supervision of Dr. Escudero, who did not see the patient but was available upon request 08/08/2024 Essential (primary) hypertension (ICD-10 - I10) Mrs. Capone is a 69-year-old lady with GERD, hypertension, hyperlipidemia, GI bleed and follows up with Juan Sequeira at GI, postmenopausal atrophic vaginitis, asthma/seasonal allergies, migraine headaches and TIA here for Blood pressure check. As follows Hypertension - Blood pressure is elevated in the office today. Heart rate is within normal limits and oxygen is within normal limits. EKG is obtained with heart rate of 77bpm, Sinus rhythm. No ST elevation/depress ion. No BBBB I started patient on Coreg 3.125 BID. Continue on losartan 100 mg and amlodipine 10 mg. Recent comp was reassuring. Physical examination is non-concerning for neurological focal deficit. No bilateral lower extremity edema. Migraine with aura: - She no longer follows with Dr. Olivo-Neurol ogist for Migraine and she had a sample of Ubrelvy which helped significantly with migraines. Started patient on the med. I have rendered the services for this patient under direct supervision of Dr. Escudero, who did not see the patient but was available upon request 08/15/2024 Essential (primary) hypertension (ICD-10 - I10) Mrs. Capone is a 69-year-old lady with GERD, hypertension, hyperlipidemia, GI bleed and follows up with Juan Hua at GI, postmenopausal atrophic vaginitis, asthma/seasonal allergies, migraine headaches and TIA here for Blood pressure check. As follows Hypertension - Blood pressure Is well controlled. 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 We will get an echo to assess heart function and establish baseline. States she of the fifth digit - She states that that has been chronic, it is constant. The only involves the fifth left digit Of the foot. Negative Tinel's test. Possible nerve compression. Referred patient to podiatry for further workup and evaluation Insomnia Refill trazodone I have rendered the services for this patient under direct supervision of Dr. Escudero, who did not see the patient but was available upon request 08/15/2024 Cardiac murmur, unspecified (ICD-10 - R01.1) Mrs. Capone is a 69-year-old lady with GERD, hypertension, hyperlipidemia, GI bleed and follows up with Juan Hua at GI, postmenopausal atrophic vaginitis, asthma/seasonal allergies, migraine headaches and TIA here for Blood pressure check. As follows Hypertension - Blood pressure Is well controlled. 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 We will get an echo to assess heart function and establish baseline. States she of the fifth digit - She states that that has been chronic, it is constant. The only involves the fifth left digit Of the foot. Negative Tinel's test. Possible nerve compression. Referred patient to podiatry for further workup and evaluation Insomnia Refill trazodone I have rendered the services for this patient under direct supervision of Dr. Escudero, who did not see the patient but was available upon request 08/23/2024 Other specified disorders of breast (ICD-10 - N64.89) 11/01/2024 Essential (primary) hypertension (ICD-10 - I10) Mrs. Capone is a 69-year-old lady with GERD, hypertension, hyperlipidemia, GI bleed and follows up with Juan Sequeira at GI, postmenopausal atrophic vaginitis, asthma/seasonal allergies, migraine headaches and TIA here for Recent ER follow-up. She was seen in the hospital for symptoms of bilateral arm and right leg weakness with headache and difficulty with speech. CT and CTA did not show acute evidence of intracranial pathology, it was thought to be related to gabapentin and thus medication has been discontinued. Plan as follows Hypertension. Blood pressure is well controlled. Continue same regimen Hypokalemia. She is currently on 20 mEq 3 times a week. She is not on medications that are known to cause hypokalemia. It is noted that workup was done at the hospital which he did show low Renin activity, we have deferred patient prior to this appointment to computing consultant for further workup on secondary causes of hyperkalemia. She does have an appointment coming up in 1 week. As for now we will recheck again uncombed, continue on potassium supplement 3 times a week. Epidermal cyst. She was seen at [facility] surgery and it was resected and now it occurred again, will refer patient to the department again Insomnia. Stable at this point. Continue same regimen Occlusion and stenosis of the carotid artery. We have done an ultrasound of the carotid back in August 2024 which did show less than 50% of stenosis bilaterally. We will optimize management by controlling blood pressure and high cholesterol, we will repeat ultrasound in one year. Pulmonary nodule. At that she will again on the CAT scan, grossly unchanged compared to before. We have also done a CAT scan and it was determined as benign. She is a low risk for malignancy as she is a non-smoker. We will keep him under surveillance, repeat CAT scan in 12 months NABIL. Continue on CPAP TIA. At this point she cannot be on antiplatelets as she did develop a GI bleed before. She is awaiting an appointment from neurologist. Migraine. Stable at this point Recent hospital visit has been reviewed with the patient. Questions have been answered. General concerns have been discussed I have rendered the services for this patient under direct supervision of Dr. Escudero, who did not see the patient but was available upon request 11/01/2024 Epidermal cyst (ICD-10 - L72.0) Mrs. Capone is a 69-year-old lady with GERD, hypertension, hyperlipidemia, GI bleed and follows up with Juan Sequeira at , postmenopausal atrophic vaginitis, asthma/seasonal allergies, migraine headaches and TIA here for Recent ER follow-up. She was seen in the hospital for symptoms of bilateral arm and right leg weakness with headache and difficulty with speech. CT and CTA did not show acute evidence of intracranial pathology, it was thought to be related to gabapentin and thus medication has been discontinued. Plan as follows Hypertension. Blood pressure is well controlled. Continue same regimen Hypokalemia. She is currently on 20 mEq 3 times a week. She is not on medications that are known to cause hypokalemia. It is noted that workup was done at the hospital which he did show low Renin activity, we have deferred patient prior to this appointment to computing consultant for further workup on secondary causes of hyperkalemia. She does have an appointment coming up in 1 week. As for now we will recheck again uncombed, continue on potassium supplement 3 times a week. Epidermal cyst. She was seen at [facility] surgery and it was resected and now it occurred again, will refer patient to the department again Insomnia. Stable at this point. Continue same regimen Occlusion and stenosis of the carotid artery. We have done an ultrasound of the carotid back in August 2024 which did show less than 50% of stenosis bilaterally. We will optimize management by controlling blood pressure and high cholesterol, we will repeat ultrasound in one year. Pulmonary nodule. At that she will again on the CAT scan, grossly unchanged compared to before. We have also done a CAT scan and it was determined as benign. She is a low risk for malignancy as she is a non-smoker. We will keep him under surveillance, repeat CAT scan in 12 months NABIL. Continue on CPAP TIA. At this point she cannot be on antiplatelets as she did develop a GI bleed before. She is awaiting an appointment from neurologist. Migraine. Stable at this point Recent hospital visit has been reviewed with the patient. Questions have been answered. General concerns have been discussed I have rendered the services for this patient under direct supervision of Dr. 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 Capone is a 69-year-old lady with GERD, hypertension, hyperlipidemia, GI bleed and follows up with Juan Hua at GI, postmenopausal atrophic vaginitis, asthma/seasonal allergies, migraine headaches and TIA here for Blood pressure check. As follows Hypertension - Blood pressure Is well controlled. 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 We will get an echo to assess heart function and establish baseline. States she of the fifth digit - She states that that has been chronic, it is constant. The only involves the fifth left digit Of the foot. Negative Tinel's test. Possible nerve compression. Referred patient to podiatry for further workup and evaluation Insomnia Refill trazodone I have rendered the services for this patient under direct supervision of Dr. Escudero, who did not see the patient but was available upon request 08/01/2024 Paresthesia of skin (ICD-10 - R20.2) Mrs. Capone is a 69-year-old lady with GERD, hypertension, hyperlipidemia, GI bleed and follows up with Juan Hua at GI, postmenopausal atrophic vaginitis, asthma/seasonal allergies, migraine headaches and TIA here for BP follow-up. Plan as follows: HTN: - Blood pressure is within acceptable range. Continue on losartan to 100mg and amlodipine 10mg. Recent comp is non-concerning. Non-fasting BW. Potassium is within normal limit. Discontinue potassium chloride. Advised on increasing hydration, weight loss and excercising. TIA - Referred patient to Neurology for further discussion. Paresthesia of the skin: - Patient was prescribed gabapentin at the hospital. Refilled med. General concerns have been discussed I have rendered the services for this patient under direct supervision of Dr. Escudero, who did not see the patient but was available upon request 08/08/2024 Migraine with aura, not intractable, without status migrainosus (ICD-10 - G43.109) Mrs. Capone is a 69-year-old lady with GERD, hypertension, hyperlipidemia, GI bleed and follows up with Juan Hua at GI, postmenopausal atrophic vaginitis, asthma/seasonal allergies, migraine headaches and TIA here for Blood pressure check. As follows Hypertension - Blood pressure is elevated in the office today. Heart rate is within normal limits and oxygen is within normal limits. EKG is obtained with heart rate of 77bpm, Sinus rhythm. No ST elevation/depress ion. No BBBB I started patient on Coreg 3.125 BID. Continue on losartan 100 mg and amlodipine 10 mg. Recent comp was reassuring. Physical examination is non-concerning for neurological focal deficit. No bilateral lower extremity edema. Migraine with aura: - She no longer follows with Dr. Olivo-Neurol ogist for Migraine and she had a sample of Ubrelvy which helped significantly with migraines. Started patient on the med. I have rendered the services for this patient under direct supervision of Dr. Escudero, who did not see the patient but was available upon request 07/25/2024 Obstructive sleep apnea (ICD-10 - G47.33) Mrs. Capone is a 69-year-old lady with GERD, hypertension, hyperlipidemia, GI bleed and follows up with Juan Sequeira at GI, postmenopausal atrophic vaginitis, asthma/seasonal allergies, migraine headaches and TIA here for 4 Hospital follow-up.Plan as follows: HTN: - Blood pressure is elevated in the office today. She is still taking Chlorthalidone along with amlodipine 10mg and losartan 50mg. I have discontinued Chlorthalidone and increased losartan to 100mg. Continue on potassium chloride until we check bmp for electrolyte imbalance and kidney function. HLD: - She is currently on Atorvastatin 80mg. Check lipid panel NABIL: - Compliance highly recommended with CPAP. Complications discussed. Migraine with atypical features - Currently follows with Neurology TIA Cerebral aneurysm: - There has been a question on 2mm anterior communicating artery aneurysm. Mild atherosclerotic buildup in the carotid Repeat CTA in the hospital showed no mention of aneurysm, however patient has a follow-up with neurosurgeon on further evaluation. As for now, we will optimize management. LDL goal below 70, a1c below 7. BP 130/80. She is not on ASA/Plavix due to history of GI bleed. Patient is to follow with neurology on further discussion and alternative Ordered Carotid U/S to assess degree of atherosclerotic build-up. Pulmonary nodule: - Former smoker. Incidental finding on CXR with nodule of 7.8. Semi-solid mass. Ordered CT to further assess. I have rendered the services for this patient under direct supervision of Dr. Escudero, who did not see the patient but was available upon request 02/28/2024 Migraine with aura, not intractable, without status migrainosus (ICD-10 - G43.109) Mrs. Capone is a 68-year-old lady with GERD, hypertension, hyperlipidemia, GI bleed and follows up with Juan Hua at GI, postmenopausal atrophic vaginitis, asthma/seasonal allergies, migraine headaches and TIA here for for physical examination. Plan as follows: HTN: - BP is well controlled. Continue on the same regimen. - EKG is performed today HR of 68, Sinus Rhythm. No ST elevation/depress ion or BBB. Migrain with aura: Brain Aneurysm - She is currently on Topamax. Recommended using magnesium or Riboflavin for headache. Given her history of UGIB and TIA. There is a limited option for other medications to consider. Referred to Neurology as well for possible botox injections. Insomnia: - Advisde on establishing good sleep habits. Can use Melatonin. Started patient on Trazadone low dose. HLD: - Previous lipid panel is abnormal. Check lipid panel She is UTD on vaccination and screening Referred to Dermatology [facility]: Has an upcoming appt Dentist twice a year Hearing referred to ENT HCP Ursula Capone Ph: . Full Code I have rendered the services for this patient under direct supervision of Dr. Escudero, who did not see the patient but was available upon request 02/28/2024 Insomnia, unspecifie d (ICD-10 - G47.00) Mrs. Capone is a 68-year-old lady with GERD, hypertension, hyperlipidemia, GI bleed and follows up with Juan Hua at GI, postmenopausal atrophic vaginitis, asthma/seasonal allergies, migraine headaches and TIA here for for physical examination. Plan as follows: HTN: - BP is well controlled. Continue on the same regimen. - EKG is performed today HR of 68, Sinus Rhythm. No ST elevation/depress ion or BBB. Migrain with aura: Brain Aneurysm - She is currently on Topamax. Recommended using magnesium or Riboflavin for headache. Given her history of UGIB and TIA. There is a limited option for other medications to consider. Referred to Neurology as well for possible botox injections. Insomnia: - Advisde on establishing good sleep habits. Can use Melatonin. Started patient on Trazadone low dose. HLD: - Previous lipid panel is abnormal. Check lipid panel She is UTD on vaccination and screening Referred to Dermatology [facility]: Has an upcoming appt Dentist twice a year Hearing referred to ENT HCP Ursula Capone Ph: . Full Code I have rendered the services for this patient under direct supervision of Dr. Escudero, who did not see the patient but was available upon request 07/25/2024 Migraine with aura, not intractable, without status migrainosus (ICD-10 - G43.109) Mrs. Capone is a 69-year-old lady with GERD, hypertension, hyperlipidemia, GI bleed and follows up with Juan Hua at GI, postmenopausal atrophic vaginitis, asthma/seasonal allergies, migraine headaches and TIA here for 4 Hospital follow-up.Plan as follows: HTN: - Blood pressure is elevated in the office today. She is still taking Chlorthalidone along with amlodipine 10mg and losartan 50mg. I have discontinued Chlorthalidone and increased losartan to 100mg. Continue on potassium chloride until we check bmp for electrolyte imbalance and kidney function. HLD: - She is currently on Atorvastatin 80mg. Check lipid panel NABIL: - Compliance highly recommended with CPAP. Complications discussed. Migraine with atypical features - Currently follows with Neurology TIA Cerebral aneurysm: - There has been a question on 2mm anterior communicating artery aneurysm. Mild atherosclerotic buildup in the carotid Repeat CTA in the hospital showed no mention of aneurysm, however patient has a follow-up with neurosurgeon on further evaluation. As for now, we will optimize management. LDL goal below 70, a1c below 7. BP 130/80. She is not on ASA/Plavix due to history of GI bleed. Patient is to follow with neurology on further discussion and alternative Ordered Carotid U/S to assess degree of atherosclerotic build-up. Pulmonary nodule: - Former smoker. Incidental finding on CXR with nodule of 7.8. Semi-solid mass. Ordered CT to further assess. I have rendered the services for this patient under direct supervision of Dr. Escudero, who did not see the patient but was available upon request 08/15/2024 Paresthesia of skin (ICD-10 - R20.2) Mrs. Capone is a 69-year-old lady with GERD, hypertension, hyperlipidemia, GI bleed and follows up with Juan Hau at GI, postmenopausal atrophic vaginitis, asthma/seasonal allergies, migraine headaches and TIA here for Blood pressure check. As follows Hypertension - Blood pressure Is well controlled. 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 We will get an echo to assess heart function and establish baseline. States she of the fifth digit - She states that that has been chronic, it is constant. The only involves the fifth left digit Of the foot. Negative Tinel's test. Possible nerve compression. Referred patient to podiatry for further workup and evaluation Insomnia Refill trazodone I have rendered the services for this patient under direct supervision of Dr. Escudero, who did not see the patient but was available upon request 11/01/2024 Insomnia, unspecifie d (ICD-10 - G47.00) Mrs. Capone is a 69-year-old lady with GERD, hypertension, hyperlipidemia, GI bleed and follows up with Juan Sequeira at GI, postmenopausal atrophic vaginitis, asthma/seasonal allergies, migraine headaches and TIA here for Recent ER follow-up. She was seen in the hospital for symptoms of bilateral arm and right leg weakness with headache and difficulty with speech. CT and CTA did not show acute evidence of intracranial pathology, it was thought to be related to gabapentin and thus medication has been discontinued. Plan as follows Hypertension. Blood pressure is well controlled. Continue same regimen Hypokalemia. She is currently on 20 mEq 3 times a week. She is not on medications that are known to cause hypokalemia. It is noted that workup was done at the hospital which he did show low Renin activity, we have deferred patient prior to this appointment to computing consultant for further workup on secondary causes of hyperkalemia. She does have an appointment coming up in 1 week. As for now we will recheck again uncombed, continue on potassium supplement 3 times a week. Epidermal cyst. She was seen at [facility] surgery and it was resected and now it occurred again, will refer patient to the department again Insomnia. Stable at this point. Continue same regimen Occlusion and stenosis of the carotid artery. We have done an ultrasound of the carotid back in August 2024 which did show less than 50% of stenosis bilaterally. We will optimize management by controlling blood pressure and high cholesterol, we will repeat ultrasound in one year. Pulmonary nodule. At that she will again on the CAT scan, grossly unchanged compared to before. We have also done a CAT scan and it was determined as benign. She is a low risk for malignancy as she is a non-smoker. We will keep him under surveillance, repeat CAT scan in 12 months NABIL. Continue on CPAP TIA. At this point she cannot be on antiplatelets as she did develop a GI bleed before. She is awaiting an appointment from neurologist. Migraine. Stable at this point Recent hospital visit has been reviewed with the patient. Questions have been answered. General concerns have been discussed I have rendered the services for this patient under direct supervision of Dr. Escudero, who did not see the patient but was available upon request 11/01/2024 Occlusion and stenosis of unspecified carotid artery (ICD-10 - I65.29) Mrs. Capone is a 69-year-old lady with GERD, hypertension, hyperlipidemia, GI bleed and follows up with Juan Sequeira at , postmenopausal atrophic vaginitis, asthma/seasonal allergies, migraine headaches and TIA here for Recent ER follow-up. She was seen in the hospital for symptoms of bilateral arm and right leg weakness with headache and difficulty with speech. CT and CTA did not show acute evidence of intracranial pathology, it was thought to be related to gabapentin and thus medication has been discontinued. Plan as follows Hypertension. Blood pressure is well controlled. Continue same regimen Hypokalemia. She is currently on 20 mEq 3 times a week. She is not on medications that are known to cause hypokalemia. It is noted that workup was done at the hospital which he did show low Renin activity, we have deferred patient prior to this appointment to computing consultant for further workup on secondary causes of hyperkalemia. She does have an appointment coming up in 1 week. As for now we will recheck again uncombed, continue on potassium supplement 3 times a week. Epidermal cyst. She was seen at [facility] surgery and it was resected and now it occurred again, will refer patient to the department again Insomnia. Stable at this point. Continue same regimen Occlusion and stenosis of the carotid artery. We have done an ultrasound of the carotid back in August 2024 which did show less than 50% of stenosis bilaterally. We will optimize management by controlling blood pressure and high cholesterol, we will repeat ultrasound in one year. Pulmonary nodule. At that she will again on the CAT scan, grossly unchanged compared to before. We have also done a CAT scan and it was determined as benign. She is a low risk for malignancy as she is a non-smoker. We will keep him under surveillance, repeat CAT scan in 12 months NABIL. Continue on CPAP TIA. At this point she cannot be on antiplatelets as she did develop a GI bleed before. She is awaiting an appointment from neurologist. Migraine. Stable at this point Recent hospital visit has been reviewed with the patient. Questions have been answered. General concerns have been discussed I have rendered the services for this patient under direct supervision of Dr. Escudero, who did not see the patient but was available upon request 07/25/2024 Pulmonary nodule (ICD-10 - R91.1) Mrs. Capone is a 69-year-old lady with GERD, hypertension, hyperlipidemia, GI bleed and follows up with Juan Sequeira at , postmenopausal atrophic vaginitis, asthma/seasonal allergies, migraine headaches and TIA here for 4 Hospital follow-up.Plan as follows: HTN: - Blood pressure is elevated in the office today. She is still taking Chlorthalidone along with amlodipine 10mg and losartan 50mg. I have discontinued Chlorthalidone and increased losartan to 100mg. Continue on potassium chloride until we check bmp for electrolyte imbalance and kidney function. HLD: - She is currently on Atorvastatin 80mg. Check lipid panel NABIL: - Compliance highly recommended with CPAP. Complications discussed. Migraine with atypical features - Currently follows with Neurology TIA Cerebral aneurysm: - There has been a question on 2mm anterior communicating artery aneurysm. Mild atherosclerotic buildup in the carotid Repeat CTA in the hospital showed no mention of aneurysm, however patient has a follow-up with neurosurgeon on further evaluation. As for now, we will optimize management. LDL goal below 70, a1c below 7. BP 130/80. She is not on ASA/Plavix due to history of GI bleed. Patient is to follow with neurology on further discussion and alternative Ordered Carotid U/S to assess degree of atherosclerotic build-up. Pulmonary nodule: - Former smoker. Incidental finding on CXR with nodule of 7.8. Semi-solid mass. Ordered CT to further assess. I have rendered the services for this patient under direct supervision of Dr. Escudero, who did not see the patient but was available upon request 02/28/2024 Hyperlipidemia, unspecified (ICD-10 - E78.5) Mrs. Capone is a 68-year-old lady with GERD, hypertension, hyperlipidemia, GI bleed and follows up with Juan Hua at GI, postmenopausal atrophic vaginitis, asthma/seasonal allergies, migraine headaches and TIA here for for physical examination. Plan as follows: HTN: - BP is well controlled. Continue on the same regimen. - EKG is performed today HR of 68, Sinus Rhythm. No ST elevation/depress ion or BBB. Migrain with aura: Brain Aneurysm - She is currently on Topamax. Recommended using magnesium or Riboflavin for headache. Given her history of UGIB and TIA. There is a limited option for other medications to consider. Referred to Neurology as well for possible botox injections. Insomnia: - Advisde on establishing good sleep habits. Can use Melatonin. Started patient on Trazadone low dose. HLD: - Previous lipid panel is abnormal. Check lipid panel She is UTD on vaccination and screening Referred to Dermatology [facility]: Has an upcoming appt Dentist twice a year Hearing referred to ENT HCP Ursula Capone Ph: . Full Code I have rendered the services for this patient under direct supervision of Dr. Escudero, who did not see the patient but was available upon request 07/25/2024 Occlusion and stenosis of unspecified carotid artery (ICD-10 - I65.29) Mrs. Capone is a 69-year-old lady with GERD, hypertension, hyperlipidemia, GI bleed and follows up with Juan Cejas at GI, postmenopausal atrophic vaginitis, asthma/seasonal allergies, migraine headaches and TIA here for 4 Hospital follow-up.Plan as follows: HTN: - Blood pressure is elevated in the office today. She is still taking Chlorthalidone along with amlodipine 10mg and losartan 50mg. I have discontinued Chlorthalidone and increased losartan to 100mg. Continue on potassium chloride until we check bmp for electrolyte imbalance and kidney function. HLD: - She is currently on Atorvastatin 80mg. Check lipid panel NABIL: - Compliance highly recommended with CPAP. Complications discussed. Migraine with atypical features - Currently follows with Neurology TIA Cerebral aneurysm: - There has been a question on 2mm anterior communicating artery aneurysm. Mild atherosclerotic buildup in the carotid Repeat CTA in the hospital showed no mention of aneurysm, however patient has a follow-up with neurosurgeon on further evaluation. As for now, we will optimize management. LDL goal below 70, a1c below 7. BP 130/80. She is not on ASA/Plavix due to history of GI bleed. Patient is to follow with neurology on further discussion and alternative Ordered Carotid U/S to assess degree of atherosclerotic build-up. Pulmonary nodule: - Former smoker. Incidental finding on CXR with nodule of 7.8. Semi-solid mass. Ordered CT to further assess. I have rendered the services for this patient under direct supervision of Dr. Escudero, who did not see the patient but was available upon request 11/01/2024 Pulmonary nodule, right (ICD-10 - R91.1) Mrs. Capone is a 69-year-old lady with GERD, hypertension, hyperlipidemia, GI bleed and follows up with Juan Sequeira at , postmenopausal atrophic vaginitis, asthma/seasonal allergies, migraine headaches and TIA here for Recent ER follow-up. She was seen in the hospital for symptoms of bilateral arm and right leg weakness with headache and difficulty with speech. CT and CTA did not show acute evidence of intracranial pathology, it was thought to be related to gabapentin and thus medication has been discontinued. Plan as follows Hypertension. Blood pressure is well controlled. Continue same regimen Hypokalemia. She is currently on 20 mEq 3 times a week. She is not on medications that are known to cause hypokalemia. It is noted that workup was done at the hospital which he did show low Renin activity, we have deferred patient prior to this appointment to computing consultant for further workup on secondary causes of hyperkalemia. She does have an appointment coming up in 1 week. As for now we will recheck again uncombed, continue on potassium supplement 3 times a week. Epidermal cyst. She was seen at [facility] surgery and it was resected and now it occurred again, will refer patient to the department again Insomnia. Stable at this point. Continue same regimen Occlusion and stenosis of the carotid artery. We have done an ultrasound of the carotid back in August 2024 which did show less than 50% of stenosis bilaterally. We will optimize management by controlling blood pressure and high cholesterol, we will repeat ultrasound in one year. Pulmonary nodule. At that she will again on the CAT scan, grossly unchanged compared to before. We have also done a CAT scan and it was determined as benign. She is a low risk for malignancy as she is a non-smoker. We will keep him under surveillance, repeat CAT scan in 12 months NABIL. Continue on CPAP TIA. At this point she cannot be on antiplatelets as she did develop a GI bleed before. She is awaiting an appointment from neurologist. Migraine. Stable at this point Recent hospital visit has been reviewed with the patient. Questions have been answered. General concerns have been discussed I have rendered the services for this patient under direct supervision of Dr. Escudero, who did not see the patient but was available upon request 11/01/2024 Transient cerebral ischemic attack, unspecified (ICD-10 - G45.9) Mrs. Capone is a 69-year-old lady with GERD, hypertension, hyperlipidemia, GI bleed and follows up with Juan Sequeira at , postmenopausal atrophic vaginitis, asthma/seasonal allergies, migraine headaches and TIA here for Recent ER follow-up. She was seen in the hospital for symptoms of bilateral arm and right leg weakness with headache and difficulty with speech. CT and CTA did not show acute evidence of intracranial pathology, it was thought to be related to gabapentin and thus medication has been discontinued. Plan as follows Hypertension. Blood pressure is well controlled. Continue same regimen Hypokalemia. She is currently on 20 mEq 3 times a week. She is not on medications that are known to cause hypokalemia. It is noted that workup was done at the hospital which he did show low Renin activity, we have deferred patient prior to this appointment to computing consultant for further workup on secondary causes of hyperkalemia. She does have an appointment coming up in 1 week. As for now we will recheck again uncombed, continue on potassium supplement 3 times a week. Epidermal cyst. She was seen at [facility] surgery and it was resected and now it occurred again, will refer patient to the department again Insomnia. Stable at this point. Continue same regimen Occlusion and stenosis of the carotid artery. We have done an ultrasound of the carotid back in August 2024 which did show less than 50% of stenosis bilaterally. We will optimize management by controlling blood pressure and high cholesterol, we will repeat ultrasound in one year. Pulmonary nodule. At that she will again on the CAT scan, grossly unchanged compared to before. We have also done a CAT scan and it was determined as benign. She is a low risk for malignancy as she is a non-smoker. We will keep him under surveillance, repeat CAT scan in 12 months NABIL. Continue on CPAP TIA. At this point she cannot be on antiplatelets as she did develop a GI bleed before. She is awaiting an appointment from neurologist. Migraine. Stable at this point Recent hospital visit has been reviewed with the patient. Questions have been answered. General concerns have been discussed I have rendered the services for this patient under direct supervision of Dr. Escudero, who did not see the patient but was available upon request 07/25/2024 Transient cerebral ischemic attack, unspecified (ICD-10 - G45.9) Mrs. Capone is a 69-year-old lady with GERD, hypertension, hyperlipidemia, GI bleed and follows up with Juan Cejas at GI, postmenopausal atrophic vaginitis, asthma/seasonal allergies, migraine headaches and TIA here for 4 Hospital follow-up.Plan as follows: HTN: - Blood pressure is elevated in the office today. She is still taking Chlorthalidone along with amlodipine 10mg and losartan 50mg. I have discontinued Chlorthalidone and increased losartan to 100mg. Continue on potassium chloride until we check bmp for electrolyte imbalance and kidney function. HLD: - She is currently on Atorvastatin 80mg. Check lipid panel NABIL: - Compliance highly recommended with CPAP. Complications discussed. Migraine with atypical features - Currently follows with Neurology TIA Cerebral aneurysm: - There has been a question on 2mm anterior communicating artery aneurysm. Mild atherosclerotic buildup in the carotid Repeat CTA in the hospital showed no mention of aneurysm, however patient has a follow-up with neurosurgeon on further evaluation. As for now, we will optimize management. LDL goal below 70, a1c below 7. BP 130/80. She is not on ASA/Plavix due to history of GI bleed. Patient is to follow with neurology on further discussion and alternative Ordered Carotid U/S to assess degree of atherosclerotic build-up. Pulmonary nodule: - Former smoker. Incidental finding on CXR with nodule of 7.8. Semi-solid mass. Ordered CT to further assess. I have rendered the services for this patient under direct supervision of Dr. Escudero, who did not see the patient but was available upon request 11/01/2024 Migraine with aura, not intractable, without status migrainosus (ICD-10 - G43.109) Mrs. Capone is a 69-year-old lady with GERD, hypertension, hyperlipidemia, GI bleed and follows up with Juan Hua at GI, postmenopausal atrophic vaginitis, asthma/seasonal allergies, migraine headaches and TIA here for Recent ER follow-up. She was seen in the hospital for symptoms of bilateral arm and right leg weakness with headache and difficulty with speech. CT and CTA did not show acute evidence of intracranial pathology, it was thought to be related to gabapentin and thus medication has been discontinued. Plan as follows Hypertension. Blood pressure is well controlled. Continue same regimen Hypokalemia. She is currently on 20 mEq 3 times a week. She is not on medications that are known to cause hypokalemia. It is noted that workup was done at the hospital which he did show low Renin activity, we have deferred patient prior to this appointment to computing consultant for further workup on secondary causes of hyperkalemia. She does have an appointment coming up in 1 week. As for now we will recheck again uncombed, continue on potassium supplement 3 times a week. Epidermal cyst. She was seen at [facility] surgery and it was resected and now it occurred again, will refer patient to the department again Insomnia. Stable at this point. Continue same regimen Occlusion and stenosis of the carotid artery. We have done an ultrasound of the carotid back in August 2024 which did show less than 50% of stenosis bilaterally. We will optimize management by controlling blood pressure and high cholesterol, we will repeat ultrasound in one year. Pulmonary nodule. At that she will again on the CAT scan, grossly unchanged compared to before. We have also done a CAT scan and it was determined as benign. She is a low risk for malignancy as she is a non-smoker. We will keep him under surveillance, repeat CAT scan in 12 months NABIL. Continue on CPAP TIA. At this point she cannot be on antiplatelets as she did develop a GI bleed before. She is awaiting an appointment from neurologist. Migraine. Stable at this point Recent hospital visit has been reviewed with the patient. Questions have been answered. General concerns have been discussed I have rendered the services for this patient under direct supervision of Dr. Escudero, who did not see the patient but was available upon request Plan Of Treatment Pending Test Test Name Order Date Ultrasound : Breast, right 08/23/2024 Ultrasound : Breast, right 08/28/2024 Echocardiogram 08/15/2024 Mammogram, right breast 08/23/2024 Ultrasound : Abdominal 08/23/2024 Ultrasound : Carotid Doppler Bilateral 0 07/25/2024 COMPREHENSIVE METABOLIC PANEL 02/03/2022 LIPID PANEL 02/03/2022 LIPID PANEL 11/26/2021 RESPIRATORY PATHOGEN PANEL, PCR 05/04/20 URINALYSIS, COMPLETE 02/03/2022 CT Chest WO 07/25/2024 Mammo: Diagnostic Mammogram Bilateral Iron and TIBC-[id number] 02/28/2024 Ferritin-[id number] 02/28/2024 CBC/Differential (No Platelet)-[id number] CBC/Differential (No Platelet)-[id number] Albumin/Creatinine Ratio,Urine-[id number] Lipid Panel-[id number] 02/28/2024 Comp. Metabolic Panel [id number] 2023 Comp. Metabolic Panel [id number] 2024 Future Test Test Name Order Date Lipid Panel-[id number] 07/25/2024 Next Appt Details Provider Name:Niall judd, 02/07/2025 10:00:00 AM, [address] [place] [address], [id number], Insurance Providers Payer Name Payer Address Payer Phone Subscriber Number Group Number Insured Name Patient Relationship to Insured Coverage Start Date Coverage End Date [employer] Preferred [address] [place] [place] [phone] [id number] Tova Capone Self - patient is the insured [place] [address] [place] [address] [id number] Tova Capone Self - patient is the insured Medical (General) History Medical History History ICD Code GERD Hypertension Hyperlipidemia GI bleed, follows up with Juan Sequeira Postmenopausal atrophic vaginitis asthma/seasonal allergies migraine headaches TIA NABIL on CPAP Mastoiditis left ear pulmonary nodule measuring 7.8mm Surgical History Surgery Date(Month/Year) total hysterectomy, fibroids right ankle surgery, fracture partial thyroidectomy breast reduction Hospitalization History Reason Date(Month/Year) surgeries TIA 2021 UGI bleed
--- NOTE | 2024-11-07 14:53 | HO.NEPHOV ---
Vital Signs 11/07/24 14:59 Height 5 ft 3 in Weight 174 lb 2 oz BMI 30.8 BP 122/64 Blood Pressure Location Lt brachial Position Sitting Pulse 77 Pulse Source Pulse Oximeter Pulse Oximetry (%) 95 Oxygen Delivery Method Room Air Intake Visit Reasons: ENP: HTN , Hypokalemia-[employer] Required: No Accompanied by: Daughter Allergies ibuprofen Allergy (Severe, Verified 11/07/24 14:59) rash penicillin V Allergy (Severe, Verified 11/07/24 14:59) rash valsartan Allergy (Severe, Verified 11/07/24 14:59) Rash aspirin Allergy (Verified 11/07/24 14:59) rash HPI Comments Details: I had the pleasure of seeing Tova accompanied by her daughter for evaluation of hypokalemia and hypertension. She is 69 years of age and has hypertension for sometime. She has H/O TIA. She wears CPAP for NABIL. Her BP has been fluctuant needing adjustment of her medications. She has been having hypoakelmia needing K replacement. She denies any palpitations, flushing or orthostatic symptoms. She denies CAD, CHF, PAD, carotid stenosis or known KANU. Her renal function has been normal. She has dyslipidemia and is on statins. She is on Chlorthalidone and losartan. She did not have any specific complaint at the time of this office visit [facility] Medical History (Updated 12/03/24 @ 13:33 by Dallas Kebede MD) Pulmonary nodule Unspecified mastoiditis, left ear NABIL on CPAP TIA (transient ischemic attack) Migraine headache Asthma due to seasonal allergies Postmenopausal atrophic vaginitis GI bleed HLD (hyperlipidemia) HTN (hypertension) GERD (gastroesophageal reflux disease) Surgical History H/O tooth extraction History of tonsillectomy History of ankle surgery History of thyroid surgery Hx of breast reduction, elective Family History Father Cancer Mother Cancer HTN (hypertension) Family/Other Cancer HTN (hypertension) Social History Alcohol intake: never Patient Tobacco Use Status: Never used Tobacco Review of Systems Const All systems reviewed & are unremarkable except as noted in HPI and below Physical Exam Vital Signs: Last Vital Signs Pulse 77 11/07/24 14:59 BP 122/64 11/07/24 14:59 Pulse Ox 95 11/07/24 14:59 Oxygen Delivery Method Room Air 11/07/24 14:59 BMI result Body Mass Index 30.8 Const General: comfortable and no acute distress Orientation/consciousness: patient oriented x3 HEENT Head: Yes normocephalic Mouth: Normal oral and palatal mucosa present Eyes EOM: EOMs intact bilaterally Neck Neck: Yes supple Resp Auscultation: clear to auscultation bilaterally Cardio Jugular venous distension: no JVD Rate: regular rate GI Palpation (GI): Soft to palpation Auscultation: normal bowel sounds General: Yes no CVA tenderness Back/Spine/Pelvis Back: no CVA tenderness Skin General skin exam: no rashes or lesions noted Neuro General: patient oriented x3 and moves all extremities Extrem General: Yes no pedal edema Assessment & Plan Assessment & Plan (1) HTN (hypertension): Code(s): I10 - Essential (primary) hypertension Category: Medical Qualifiers: Hypertension type: primary hypertension Qualified Code(s): I10 - Essential (primary) hypertension (2) Hypokalemia: Code(s): E87.6 - Hypokalemia Category: Medical Plan Differential diagnosis for hypokalemia and hypertension are broad Also may have been caused by Chlorthalidone Work up ordered including Doppler of renal arteries Started Nifedipine; May need a 24 hour BPM Shall D/C KCl and Chlorthalidone with time May be a great candidate for Spironolactone Low sodium diet and continued life style modifications Answered all questions and follow up given Further management is pending evolving data Orders: Orders Renin 2 Weeks E87.6 - Hypokalemia, I10 - Essential (primary) hypertension Electrolytes 2 Weeks E87.6 - Hypokalemia, I10 - Essential (primary) hypertension Creatinine 2 Weeks E87.6 - Hypokalemia, I10 - Essential (primary) hypertension US renal BI 1 Week E87.6 - Hypokalemia, I10 - Essential (primary) hypertension Aldosterone 2 Weeks E87.6 - Hypokalemia, I10 - Essential (primary) hypertension Aldost/Renin 2 Weeks E87.6 - Hypokalemia, I10 - Essential (primary) hypertension TSH reflex Free T4 2 Weeks E87.6 - Hypokalemia, I10 - Essential (primary) hypertension Cortisol Random 2 Weeks E87.6 - Hypokalemia, I10 - Essential (primary) hypertension Blood Urea Nitrogen 2 Weeks E87.6 - Hypokalemia, I10 - Essential (primary) hypertension US renal doppler 1 Week E87.6 - Hypokalemia, I10 - Essential (primary) hypertension Medications: New nifedipine ER 30 mg PO DAILY 30 tabs 3RF 30 days Coding Level of Care Code New Pt Level 4 (91173) Diagnoses Primary hypertension I10 Hypertension type: primary hypertension Hypokalemia E87.6
[2024-11-07 14:59] VITALS: BP 122/64; PULSE 77; O2SAT 95; BMI 30.8
== END 2024-11-07 15:31 | disposition home or self-care (01) ==
LOC: HO.HKAS 14:47
PROVIDERS: PCP Hospitalist; Referring Provider Hospitalist; Visit Provider Internal Medicine Nephrology
DX: I10 Essential (primary) hypertension (principal); E87.6 Hypokalemia
CPT/HCPCS: 99204

== ENCOUNTER → 2024-11-07 14:46 | Outpatient (BNVA) | payer MEDICARE, SELFPAY | PROVIDERS: PCP Hospitalist; Referring Provider Hospitalist; Visit Provider Internal Medicine Nephrology | DX: I10 Essential (primary) hypertension (principal); E87.6 Hypokalemia | CPT/HCPCS: 99202 ==